=== PATIENT | female | born 1965 | race Caucasian/White ===

== ENCOUNTER 2021-03-03 15:22 | Emergency (ER) | payer SELFPAY ==
[~2021-03-03] VITALS: Ht 152.4 cm; Wt 63.5 kg
[2021-03-03] MEDS ORDERED: ONDANSETRON ODT4 MG PO ×2 (17:36→17:42)
[2021-03-03] MEDS ORDERED: CIPRO500 MG PO ×2 (17:36→17:42)
[2021-03-03] MEDS ORDERED: MOTRIN200 MG PO ×2 (17:36→17:42)
== END 2021-03-03 17:48 | disposition home or self-care (01) ==
LOC: ER 15:48
DX: N39.0 Urinary tract infection, site not specified (principal); R50.9 Fever, unspecified; M54.50 Low back pain, unspecified; R53.81 Other malaise
CPT/HCPCS: 99282